=== PATIENT | female | born 1945 | race Caucasian/White ===

== ENCOUNTER 2017-07-19 01:15 | Emergency (ER) | payer OTHER ==
[2017-07-19 04:55] VITALS: BP 171/87
== END 2017-07-19 04:55 | disposition home or self-care (01) ==
LOC: ED 01:15
DX: S60.861A Insect bite (nonvenomous) of right wrist, initial encounter (principal); R21 Rash and other nonspecific skin eruption; I10 Essential (primary) hypertension; E11.9 Type 2 diabetes mellitus without complications; Z79.4 Long term (current) use of insulin; Z79.84 Long term (current) use of oral hypoglycemic drugs; W57.XXXA Bitten or stung by nonvenomous insect and other nonvenomous arthropods, initial encounter; Y93.89 Activity, other specified; Y92.89 Other specified places as the place of occurrence of the external cause; Y99.8 Other external cause status
CPT/HCPCS: J1170